=== PATIENT | female | born 1940 | race Caucasian/White ===

== ENCOUNTER 2016-05-19 11:48 | Day surgery (SDC) | payer MEDICARE ==
--- NOTE | ~2016-05-19 | EGD ---
EGD REPORT [facility] [address] [address] NAME: RICHARD HO : 40 [place]US [place] [facility] [place] [id number] AGE: 75 ADM/REG DATE : 05/19/16 MR#: [id number] REPORT SERV DATE: 05/19/16 DICTATED BY: MINNIE MORTON DATE: 05/19/16 REPORT STATUS : Draft TRANSCRIBED BY: [employer] DATE: 05/19/16 [facility] Center Patient Name: Richard Ho Date of : 1940 Attending MD: MINNIE MORTON MD Procedure Date No Time: 05/19/2016 Procedure: Upper GI endoscopy Indications: Dysphagia, Gastro-esophageal reflux disease Referring MD: JORGE WATSON MD Medicines: See the Anesthesia note for documentation of the administered medications Complications: No immediate complications. Procedure: Pre-Anesthesia Assessment: - ASA Grade Assessment: II - A patient with mild systemic disease. After obtaining informed consent, the endoscope was passed under direct vision. Throughout the procedure, the patient's blood pressure, pulse, and oxygen saturations were monitored continuously. The GIF [id number] [id number] was introduced through the mouth, and advanced to the second part of duodenum. The upper GI endoscopy was accomplished without difficulty. The patient tolerated the procedure well. Findings: The examined duodenum was normal. Mild inflammation was found in the gastric antrum. Biopsies were taken with a cold forceps for histology. A single 10 mm sessile polyp was found in the gastric antrum. Biopsies were taken with a cold forceps for histology. The cardia and gastric fundus were normal on retroflexion. A small hiatus hernia was present. A guidewire was placed and the scope was withdrawn. Dilation was performed with a Savary dilator with no resistance at 48 Fr. Normal mucosa was found in the lower third of the esophagus. Biopsies were taken with a cold forceps for histology. Impression: - Normal examined duodenum. - Gastritis. Biopsied. - A single gastric polyp. Biopsied. - Hiatus hernia. Dilated. - Normal mucosa was found in the lower third of the esophagus. Biopsied. Recommendation: - Patient has a contact number available for EGD REPORT [address] [address] NAME: RICHARD HO : 40 [place] [facility] [place] [id number] AGE: 75 ADM/REG DATE : 05/19/16 MR#: [id number] REPORT SERV DATE: 05/19/16 DICTATED BY: MINNIE MORTON DATE: 05/19/16 REPORT STATUS : Draft TRANSCRIBED BY: [employer] DATE: 05/19/16 emergencies. The signs and symptoms of potential delayed complications were discussed with the patient. Return to normal activities tomorrow. Written discharge instructions were provided to the patient. - Continue present medications. - FOR YOUR BIOPSY RESULTS: Please go to [email or web address] and register to receive your results via the portal. Your biopsy results will be posted there in about 7 to 10 days. IF you do not see result in 10 days, call office. - Full liquids today, soft diet tomorrow, regular diet the following day Procedure Code(s): --- Professional --- 95301, Esophagogastroduodenoscopy, flexible, transoral; with insertion of guide wire followed by passage of dilator(s) through esophagus over guide wire 63512, Esophagogastroduodenoscopy, flexible, transoral; with biopsy, single or multiple Diagnosis Code(s): --- Professional --- K29.70, Gastritis, unspecified, without bleeding K31.7, Polyp of stomach and duodenum K44.9, Diaphragmatic hernia without obstruction or gangrene R13.10, Dysphagia, unspecified K21.9, Gastro-esophageal reflux disease without esophagitis CPT copyright 2013 [employer]. All rights reserved. The codes documented in this report are preliminary and upon prototype deicer assembler review may be revised to meet current compliance requirements. Minnie Morton MD MINNIE MORTON MD 05/19/2016 1:28 PM This report has been signed electronically. Number of Addenda: 0 Note Initiated On: 05/19/2016 12:53 PM Scope Withdrawal Time 0 hours 0 minutes 0 seconds [address] [place] [id number]
[~2016-05-19 11:48] MED LIST: ALIGN4 MG PO; AMB10 PO; ATEN50 PO; BENEFIBER PO; BENTYL10 PO; COZ50 PO; CYMBALTA30 PO; HCTZ25B PO; KLONO1 PO; NORCO1 TAB PO; PROTONIX PO; VITAMIN D31000 UNIT PO; ZANAFLEX2 MG PO
[2016-05-26] MEDS ORDERED: CIP5 PO (10:38)
[2016-08-08] MEDS ORDERED: NORV5 PO (11:31)
[2016-08-08] MEDS ORDERED: ULTRAM50 PO (11:32)
[2016-08-08] MEDS ORDERED: RELA5 PO (11:34)
[2016-08-08] MEDS ORDERED: SINGULAIR1 PO (11:39)
== END 2016-05-19 23:59 | disposition home or self-care (01) ==
LOC: DMU 11:48
PROVIDERS: Internal Medicine Gastroenterology
PROC: 0DB38ZX Excision of Lower Esophagus, Via Natural or Artificial Opening Endoscopic, Diagnostic (ICD-10-PCS; 2016-05-19)
PROC: 0D758ZZ Dilation of Esophagus, Via Natural or Artificial Opening Endoscopic (ICD-10-PCS; principal; 2016-05-19 13:30)
PROC: 0DB78ZX Excision of Stomach, Pylorus, Via Natural or Artificial Opening Endoscopic, Diagnostic (ICD-10-PCS; 2016-05-19 13:30)
DX: K29.50 Unspecified chronic gastritis without bleeding (principal); K31.7 Polyp of stomach and duodenum; I10 Essential (primary) hypertension; G89.29 Other chronic pain; K44.9 Diaphragmatic hernia without obstruction or gangrene; K21.9 Gastro-esophageal reflux disease without esophagitis; Z88.0 Allergy status to penicillin; Z88.1 Allergy status to other antibiotic agents; Z88.8 Allergy status to other drugs, medicaments and biological substances; Z90.89 Acquired absence of other organs; Z90.49 Acquired absence of other specified parts of digestive tract; Z98.890 Other specified postprocedural states; Z90.12 Acquired absence of left breast and nipple; Z90.710 Acquired absence of both cervix and uterus
CPT/HCPCS: 88305

== ENCOUNTER 2016-08-11 09:08 | Day surgery (SDC) | payer MEDICARE ==
--- NOTE | ~2016-08-11 | EGD ---
EGD REPORT [facility] [address] [address] NAME: RICHARD HO : 40 STATUS : REG [facility] [place] PAT#: [id number] AGE: 75 ADM/REG DATE : 08/11/16 MR#: [id number] REPORT SERV DATE: 08/11/16 DICTATED BY: MINNIE MORTON DATE: 08/11/16 REPORT STATUS : Draft TRANSCRIBED BY: [employer] DATE: 08/11/16 Endoscopy Center Patient Name: Richard Ho Date of : 1940 Attending MD: MINNIE MORTON MD Procedure Date No Time: 08/11/2016 Procedure: Colonoscopy Indications: High risk colon cancer surveillance: Personal history of colonic polyps, Last colonoscopy: March 2011 Referring MD: JORGE WATSON MD Medicines: See the Anesthesia note for documentation of the administered medications Complications: No immediate complications. Procedure: Pre-Anesthesia Assessment: - ASA Grade Assessment: III - A patient with severe systemic disease. After I obtained informed consent, the scope was passed under direct vision. Throughout the procedure, the patient's blood pressure, pulse, and oxygen saturations were monitored continuously. The PCF [id number] was introduced through the anus and advanced to the terminal ileum, with identification of the appendiceal orifice and IC valve. The colonoscopy was performed without difficulty. The patient tolerated the procedure well. The patient tolerated the procedure well. The quality of the bowel preparation was adequate. Findings: The perianal and digital rectal examinations were normal. Internal hemorrhoids were found during retroflexion and were small. Diverticula were found in the sigmoid colon and in the descending colon. Impression: - Internal hemorrhoids. - Diverticulosis in the sigmoid colon and in the descending colon. Recommendation: - Patient has a contact number available for emergencies. The signs and symptoms of potential delayed complications were discussed with the patient. Return to normal activities tomorrow. Written discharge instructions were provided to the patient. - Regular diet. - Continue present medications. - Repeat colonoscopy is not recommended for surveillance. EGD REPORT [address] [place]. [address] NAME: RICHARD HO : 40 STATUS : REG [facility]#: [id number] AGE: 75 ADM/REG DATE : 08/11/16 MR#: [id number] REPORT SERV DATE: 08/11/16 DICTATED BY: MINNIE MORTON DATE: 08/11/16 REPORT STATUS : Draft TRANSCRIBED BY: [employer] DATE: 08/11/16 Procedure Code(s): --- Professional --- 21079, Colonoscopy, flexible, proximal to splenic flexure; diagnostic, with or without collection of specimen(s) by brushing or washing, with or without colon decompression (separate procedure) Diagnosis Code(s): --- Professional --- K64.8, Other hemorrhoids K57.30, Diverticulosis of large intestine without perforation or abscess without bleeding Z86.010, Personal history of colonic polyps CPT copyright 2013 [employer]. All rights reserved. The codes documented in this report are preliminary and upon dish washer review may be revised to meet current compliance requirements. Minnie Morton MD MINNIE MORTON MD 08/11/2016 10:34 AM This report has been signed electronically. Number of Addenda: 0 Note Initiated On: 08/11/2016 9:08 AM Scope Withdrawal Time 0 hours 8 minutes 35 seconds [address] [place] [address]
[~2016-08-11 09:08] MED LIST changes: +CIP5 PO; +NORV5 PO; +RELA5 PO; +SINGULAIR1 PO; +ULTRAM50 PO
== END 2016-08-11 23:59 | disposition home or self-care (01) ==
LOC: DMU 09:08
PROVIDERS: Internal Medicine Gastroenterology
PROC: 0DJD8ZZ Inspection of Lower Intestinal Tract, Via Natural or Artificial Opening Endoscopic (ICD-10-PCS; principal; 2016-08-11 10:30)
DX: Z12.11 Encounter for screening for malignant neoplasm of colon (principal); K64.8 Other hemorrhoids; K57.30 Diverticulosis of large intestine without perforation or abscess without bleeding; I10 Essential (primary) hypertension; K21.9 Gastro-esophageal reflux disease without esophagitis; Z85.3 Personal history of malignant neoplasm of breast; F41.9 Anxiety disorder, unspecified; F32.9 Major depressive disorder, single episode, unspecified; Z86.010 Personal history of colon polyps; Z88.0 Allergy status to penicillin; Z88.8 Allergy status to other drugs, medicaments and biological substances; Z79.899 Other long term (current) drug therapy; Z88.1 Allergy status to other antibiotic agents